=== PATIENT | male | born 1935 | race Two or more races ===

== ENCOUNTER 2018-03-24 06:34 | Day surgery (SDC) | payer MEDICARE ==
[~2018-03-24 06:34] MED LIST: KETOROLAC TROMETHAMINE 0.45% 4 DROP/0.4 ML DROPERETTE OD PRN
[2018-03-24] MEDS: CYCLOPENTOLATE 0.2%/PHENYLEPHRINE 1% OPH SOLN 2 ML OD PRN ×3 (07:00→07:21)
[2018-03-24] MEDS: BESIFLOXACIN HCL 0.6% OPH SUSP 5 ML BOTTLE OD PRN ×4 (07:00→07:54)
[2018-03-24] MEDS: TETRACAINE HCL 0.5% OPH SOLN 2 ML OD PRN ×3 (07:00→07:32)
[2018-03-24] MEDS: TROPICAMIDE 1% OPH SOLN 3 ML OD PRN ×3 (07:00→07:21)
[2018-03-24] MEDS ORDERED: EPINEPHRINE INJ/PF 1 MG/1 ML AMPULE ONE (07:05)
[2018-03-24] MEDS ORDERED: LIDOCAINE 1% INJ-PF (10 MG/ML) 30 ML SDV ONE (07:06)
[2018-03-24] MEDS ORDERED: CHONDR SU A NA/HYALUR INTRAOC KIT (SURGICARE) ONE (07:06)
[2018-03-24] MEDS ORDERED: MIDAZOLAM 2 MG/2 ML INJ ONE (07:21)
--- NOTE | 2018-03-24 17:51 | [facility] OPERATIVE REPORT E ---
[facility] Operative Report NAME: JESSICA BABCOCK AGE: 82Y DATE OF SURGERY: 03/24/2018 ROOM: PREOPERATIVE DIAGNOSIS: CATARACT, RIGHT EYE. POSTOPERATIVE DIAGNOSIS: CATARACT, RIGHT EYE. OPERATION: Cataract extraction with insertion of an IOL of the right eye. SURGEON: ALEKS RODRIGUEZ M.D. ANESTHESIA: Topical. PROCEDURE: After obtaining appropriate consent, the patient's right eye was prepped and draped in sterile fashion as well as the surgeon in a sterile manner and cataract surgery was started. First a paracentesis blade was used to make a side-port incision. Viscoelastic was used to inflate the anterior chamber. Next a 2.4 mm incision was made with a 2.4 mm blade, clear corneal temporally. A continuous capsulorrhexis was made using a cystotome and Utrata forceps. Following this hydrodissection was carried out to make the lens fully loose and mobile and it was rotated 90 degrees. Following this, a yycqek-cae-wfvzfxi technique was used to phacoemulsify the lens with a CDE of 15.20. The remaining cortex was removed with irrigation/aspiration. Provisc was instilled into the capsular bag to inflate the bag. A SN60WF, 21.5 diopter lens was placed. The remaining viscoelastic material was removed with irrigation/aspiration. Following this, the incision was found to be watertight. Besivance was instilled into the eye and a protective shield was placed over the eye. The patient returned to the postoperative recovery in stable condition. DICTATING PHYSICIAN: ALEKS RODRIGUEZ M.D. [id number] PHY#: [id number] ID: [id number] JOB#: [id number] ACCT: [id number] cc:ALEKS RODRIGUEZ M.D. >
--- NOTE | 2018-03-24 17:57 | [facility] DISCHARGE SUMMARY E ---
[facility] Discharge Summary NAME: JESSICA BABCOCK AGE: 82Y ADMITTED: 03/24/2018 DISCHARGED: 03/24/2018 FINAL DIAGNOSIS: Cataract, right eye. HOSPITAL COURSE: This is an 82-year-old male who underwent cataract extraction of the right eye. Patient underwent surgery because he was having trouble seeing road signs and small print. DISCHARGE INSTRUCTIONS: He should be on a regular diet. No bending at his waist, no heavy lifting. He should use Besivance, Ilevro and Durezol at 3:00 p.m. and 8:00 p.m. Sleep with a rigid shield. I will see him for his 1-day postoperative tomorrow. DICTATING PHYSICIAN: ALEKS RODRIGUEZ M.D. [id number] PHY#: [id number] ID: [id number] JOB#: [id number] ACCT: [id number] cc:ALEKS RODRIGUEZ M.D. >
== END 2018-03-24 08:30 | disposition home or self-care (01) ==
LOC: SC 06:34
PROVIDERS: ATTEND Internal Medicine
DX: H25.811 Combined forms of age-related cataract, right eye (principal); I10 Essential (primary) hypertension; K21.9 Gastro-esophageal reflux disease without esophagitis; M10.9 Gout, unspecified; Z79.899 Other long term (current) drug therapy
CPT/HCPCS: 66984; V2632; J2250; J3490 ×2; A9270; J0171; 142

== ENCOUNTER → 2019-08-08 | Outpatient (CLI) | payer MEDICARE ==
--- NOTE | 2019-08-08 12:10 | RADIOLOGY REPORT (SQ) ---
EXAM DESCRIPTION: VENOUS UNILATERAL LOWER COMPLETED DATE/TIME: 08/08/2019 10:47 am REASON FOR STUDY: SWELLING R22.42 LOCALIZED SWELLING, MASS AND LUMP, LEFT LOWER LIMB COMPARISON: 12/26/2013 left lower extremity venous Doppler TECHNIQUE: Dynamic and static cooper scale and color images acquired of the left leg venous system. Se lected spectral images acquired with additional compression and augmentation maneuvers. The contralat eral common femoral vein and saphenofemoral junction were also imaged. Images stored on PACS. LIMITATIONS: None. FINDINGS: LEFT COMMON FEMORAL: Normal phasicity, compression and augmentation. No visualized echogenic material on g ray scale. No defects on color images. FEMORAL: Normal compression and augmentation. No visualized echogenic material on cooper scale. No defe cts on color images. POPLITEAL: Normal compression, augmentation. No visualized echogenic material on cooper scale. No defec ts on color images. CALF VESSELS: Normal compression, augmentation. No visualized echogenic material on cooper scale. No de fects on color images. GSV and SSV: Normal compression, augmentation. No visualized echogenic material on cooper scale. No def ects on color images. ANY DEEP VENOUS INSUFFICIENCY: Not evaluated. ANY EVIDENCE OF POPLITEAL CYST: No. OTHER: No other significant finding. RIGHT COMMON FEMORAL VEIN AND SAPHENOFEMORAL JUNCTION: Normal phasicity, compression and augmentation. No visualized echogenic material on cooper scale. No de fects on color images. IMPRESSION: NO EVIDENCE OF DVT OR SVT IN THE LEFT LEG. TECHNICAL DOCUMENTATION: JOB ID: [id number] [employer]- All Rights Reserved Reading location - IP/workstation name: [email or web address]
== END ==
LOC: SP 09:48
PROVIDERS: ATTEND Internal Medicine
DX: R22.42 Localized swelling, mass and lump, left lower limb (principal)
CPT/HCPCS: 93971

== ENCOUNTER → 2020-02-16 | Outpatient (CLI) | payer MEDICARE ==
--- NOTE | 2020-02-16 15:16 | RADIOLOGY REPORT (SQ) ---
EXAM DESCRIPTION: VENOUS UNILATERAL LOWER IMAGES COMPLETED DATE/TIME: 02/16/2020 3:03 pm REASON FOR STUDY: RLE PAIN/SWELLING R22.31 LOCALIZED SWELLING, MASS AND LUMP, RIGHT UPPER LIMB R22. 41 LOCALIZED SWELLING, MASS AND LUMP, RIGHT LOWER LIMB COMPARISON: None. TECHNIQUE: Dynamic and static cooepr scale and color images acquired of the right leg venous system. S elected spectral images acquired with additional compression and augmentation maneuvers. The contrala teral common femoral vein and saphenofemoral junction were also imaged. Images stored on PACS. LIMITATIONS: None. FINDINGS: COMMON FEMORAL: Normal phasicity, compression and augmentation. No visualized echogenic ma terial on cooper scale. No defects on color images. FEMORAL: Normal compression and augmentation. No visualized echogenic material on cooper scale. No defe cts on color images. POPLITEAL: Normal compression, augmentation. No visualized echogenic material on cooper scale. No defec ts on color images. CALF VESSELS: Normal compression, augmentation. No visualized echogenic material on cooper scale. No de fects on color images. GSV and SSV: Normal compression, augmentation. No visualized echogenic material on cooper scale. No def ects on color images. ANY DEEP VENOUS INSUFFICIENCY: No. ANY EVIDENCE OF POPLITEAL CYST: No. OTHER: No other significant finding. CONTRALATERAL COMMON FEMORAL VEIN AND SAPHENOFEMORAL JUNCTION: Normal phasicity, compression and augmentation. No visualized echogenic material on cooper scale. No de fects on color images. IMPRESSION: NO EVIDENCE DVT OR SVT IN THE RIGHT LEG. TECHNICAL DOCUMENTATION: JOB ID: [id number] 2010 [employer]- All Rights Reserved Reading location - IP/workstation name: [email or web address]
== END ==
LOC: WI 12:43
PROVIDERS: ATTEND Internal Medicine
DX: R22.41 Localized swelling, mass and lump, right lower limb (principal)
CPT/HCPCS: 93971

== ENCOUNTER → 2020-05-29 | Outpatient (CLI) | payer MEDICARE ==
--- NOTE | 2020-05-29 16:07 | RADIOLOGY REPORT (SQ) ---
EXAM DESCRIPTION: VENOUS UNILATERAL LOWER IMAGES COMPLETED DATE/TIME: 05/29/2020 12:07 pm REASON FOR STUDY: RLE SWELLING R22.41 LOCALIZED SWELLING, MASS AND LUMP, RIGHT LOWER LIMB COMPARISON: None. TECHNIQUE: Dynamic and static cooper scale and color images acquired of the left leg venous system. Se lected spectral images acquired with additional compression and augmentation maneuvers. The contralat eral common femoral vein and saphenofemoral junction were also imaged. Images stored on PACS. LIMITATIONS: None. FINDINGS: COMMON FEMORAL: Normal phasicity, compression and augmentation. No visualized echogenic ma terial on cooper scale. No defects on color images. FEMORAL: Normal compression and augmentation. No visualized echogenic material on cooper scale. No defe cts on color images. POPLITEAL: Normal compression, augmentation. No visualized echogenic material on cooper scale. No defec ts on color images. CALF VESSELS: Normal compression, augmentation. No visualized echogenic material on cooper scale. No de fects on color images. GSV and SSV: Normal compression, augmentation. No visualized echogenic material on cooper scale. No def ects on color images. ANY DEEP VENOUS INSUFFICIENCY: Not evaluated. ANY EVIDENCE OF POPLITEAL CYST: No. OTHER: No other significant finding. CONTRALATERAL COMMON FEMORAL VEIN AND SAPHENOFEMORAL JUNCTION: Normal phasicity, compression and augmentation. No visualized echogenic material on cooper scale. No de fects on color images. IMPRESSION: NO EVIDENCE DVT OR SVT IN THE LEFT LEG. COMMENT: Preliminary report was called by the technologist to the referring clinician's office at t he time of the exam. TECHNICAL DOCUMENTATION: JOB ID: [id number] 2010 [employer]- All Rights Reserved Reading location - IP/workstation name: [email or web address]
== END ==
LOC: RAD 10:16
PROVIDERS: ATTEND Internal Medicine
DX: R22.41 Localized swelling, mass and lump, right lower limb (principal)
CPT/HCPCS: 93971

== ENCOUNTER → 2020-08-12 | Outpatient (CLI) | payer MEDICARE ==
--- NOTE | 2020-08-12 20:04 | XCELERA REPORT ---
[address] [address] Transthoracic Echocardiogram Report Name: JESSICA BABCOCK Age: 85 yrs Gender: Male : 1935 Patient Status: Preadmit Patient Location: Study Date: 08/12/2020 11:01 AM Height: 68 in Weight: 198 lb BSA: 2.0 m2 Procedure: A complete two-dimensional transthoracic echocardiogram was performed (2D, M-mode, spectral and color flow Doppler). The study was technically adequate with some images being suboptimal in quality. Reason For Study: EDEMA Ordering Physician: YOSELIN MARTINEZ Performed By: Shi Blandon Interpretation Summary LEFT VENTRICLE: LV Systolic function: LVEF is felt to be within normal limits. Best estimate is approximately LVEF is 60 to 65%. LV Diastolic Function: grade 1 diastolic dysfunction noted. Wall motion: No definite regional wall motion abnormalities are noted. Left ventricular chamber size: is within normal limit. Left ventricular wall thickness: wnl. RIGHT VENTRICLE: RV systolic function: is felt to be within normal limit. Right Ventricle Size: is within normal limits. LEFT ATRIUM size: is within normal limit. RIGHT ATRIUM size: is within normal limit. INTER ATRIAL SEPTUM: No definite atrial septal defect noted however a small PFO could be missed. AORTIC ROOT: seems to be within normal limits. ASCENDING AORTA: is not well visualized. INFERIOR VENA CAVA: was not well visualized. VALVES: MITRAL VALVE: Leaflets are mildly thickened. Mobility seems to be within normal limits. Mitral Regurgitation: Trace mitral regurgitation is noted. Mitral Stenosis: No mitral stenosis noted. Mitral valve prolapse: none noted. AORTIC VALVE: seems to be trileaflet with mild thickening but adequate excursion. Aortic stenosis: No aortic stenosis noted. Aortic regurgitation: No aortic incompetence noted. TRICUSPID VALVE: mobility and structures within normal limit. Tricuspid stenosis: no tricuspid stenosis noted. Tricuspid regurgitation: Trace tricuspid regurgitation noted. Estimated RVSP: upper limit of normal. PULMONARY VALVE: was not well visualized but no significant abnormalities suspected. Pulmonary stenosis: no pulmonary stenosis noted. Pulmonary regurgitation: no significant pulmonary regurgitation noted. MASSES AND THROMBUS: No definite intracardiac thrombus or masses are noted. PERICARDIUM: No pericardial effusion was noted. IMPRESSION: 1. Normal LVEF. 2. Normal chamber sizes noted. No LVH noted. 3. Grade 1 Diastolic Dysfunction noted. 4. No significant valvular stenosis or regurgitation noted. MMode/2D Measurements & Calculations RVDd: 1.8 cm LVIDd: 4.7 cm FS: 39.9 % Ao root diam: 2.9 cm IVSd: 0.87 cm LVIDs: 2.8 cm EDV(Teich): 103.2 ml Ao root area: 6.4 cm2 LVPWd: 0.91 cm ESV(Teich): 30.4 ml EF(Teich): 70.5 % Doppler Measurements & Calculations MV E max ale: MV dec slope: Ao V2 max: LV V1 max P.7 cm/sec 373.4 cm/sec2 138.9 cm/sec 5.7 mmHg MV A max ale: MV dec time: 0.21 sec Ao max PG: LV V1 max: 94.2 cm/sec 7.7 mmHg 119.7 cm/sec MV E/A: 0.81 PA V2 max: TR max ale: 91.1 cm/sec 220.2 cm/sec PA max P.3 mmHgTR max P.4 mmHg : YOSELIN MARTINEZ Shyamal
== END ==
LOC: SP 11:00
PROVIDERS: ATTEND Internal Medicine Nephrology
DX: R06.02 Shortness of breath (principal); R60.9 Edema, unspecified; N18.4 Chronic kidney disease, stage 4 (severe)
CPT/HCPCS: 93306